=== PATIENT | male | born 1945 | race Caucasian/White ===

== ENCOUNTER 2016-10-15 10:29 | Emergency (ER) | payer OTHER, MEDICARE ==
[~2016-10-15] VITALS: Ht 167.6 cm; Wt 59.9 kg
[~2016-10-15 10:29] MED LIST: ANUSOL-HC25 M1 RC; CRESTOR20 MG PO; DIAZEPAM5 MG PO; DOCULAX PO; FLU VACCINE 0.0.5 ML IM; MULTIPLE VITAMI1 TAB PO; OXYCODONE-ACET1 EACH PO; PRINIVIL10 MG PO; SPIRIVA 18 MCG18 MCG INH; SYNTHROID125 MCG PO; TYLENOL #31 TAB PO
--- NOTE | 2016-10-15 11:06 | ED CARDIAC/CP/PALPITATIONS ---
History of Present Illness General Chief Complaint: Chest Pain Stated Complaint: CP, R SIDE HEADACHE, R ARM PAIN Source: patient Exam Limitations: no limitations Vital Signs & Intake/Output Vital Signs & Intake/Output Vital Signs Date Time Temp Pulse Resp B/P B/P Pulse O2 O2 Flow FiO2 Mean Ox Delivery Rate 10/15 1329 96.9 61 17 173/79 97 Room Air 10/15 1127 56 20 128/52 94 Room Air 10/15 1038 97.2 66 20 96 Room Air Allergies Coded Allergies: NO KNOWN ALLERGIES (02/04/12) Reconcile Medications Fluticasone/Vilanterol (Breo Ellipta 100-25 Mcg INH) 100 MCG-25 MCG/DOSE BLST.W.DEV 1 PUFF INH DAILY RESP (Reported) Levothyroxine Sodium (Synthroid) 125 MCG TABLET 1 TAB PO MoTuWeThFrSa THYROID (Reported) Levothyroxine Sodium 125 MCG TABLET 0.5 TAB PO Mon[place]roso THYROID (Reported) Lisinopril (Prinivil) 10 MG TABLET 1 TAB PO DAILY BLOOD PRESSURE (Reported) Multivitamin (Multiple Vitamin) 1 TAB TAB 0.5 TAB PO BID SUPPLEMENT (Reported ) Oxycodone HCl/Acetaminophen (Oxycodone-Acetaminophen 5-325) 5 MG-325 MG TABLET 1 TAB PO BIDP PRN SUPPLEMENT (Reported) Rosuvastatin Calcium (Crestor) 20 MG TABLET 1 TAB PO DAILY CHOLESTROL ( Reported) Triage Note: PT TO ED C/O R SIDED CHEST PAIN, R AXILLARY PAIN AND R SIDED HEAD PAIN X 2 DAYS. STATES COMES AND GOES, SHOOTING IN NATURE. CURRENTLY DENIES ANY PAIN. DENIES N/V/D. DENIES ANY INJURY. EKG DONE. PCP IS DR DA SILVA. Triage Nurses Notes Reviewed? 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 He states the episodes last for approximately a few seconds and resolve on their own. No history of similar episodes in the past. No trauma he denies recent heavy lifting or fall. No shortness of breath and cough hemoptysis. The pain is not worse with inspiration he denies he symptoms at this time. No chest pain. He denies headache vision changes neck or back pain. He is not taken anything for his symptoms no abdominal pain nausea or vomiting. No modifying factors she is not taken anything for symptoms (ALLA SCHROEDER) Past History Travel History Traveled to [place] past 21 day No Medical History Any Pertinent Medical History? see below for history Cardiovascular: hypertension, hyperlipidemia, myocardial infarction Respiratory: emphysema Surgical History Surgical History: non-contributory Psychosocial History Who do you live with Spouse What is your primary language Marshallese Tobacco Use: Quit >30 days ago ETOH Use: denies use Illicit Drug Use: denies illicit drug use Family History Hx Contributory? No (ALLA SCHROEDER) Review of Systems Review of Systems Constitutional: Reports: no symptoms, see HPI. All Other Systems: Reviewed and Negative Comments Review of systems: See HPI, All other systems negative. Constitutional, no chills no fever, no malaise HEENT: No visual changes no sore throat no congestion, no ear pain Cardiovascular: No chest pain , no palpitation , no orthopnea Skin: no rashes, no change in skin Respiratory: No dyspnea no cough no sputum no hemoptysis GI: No nausea no vomiting, no diarrhea, no bloating/constipation : No dysuria Muscle skeletal: No joint pain, no joint swelling, no back pain, no neck pain, Neurologic: No numbness no confusion, no headache Psych: No stress Heme/endocrine: No bruising no bleeding Immunology: No lymphadenopathy (ALLA SCHROEDER) Physical Exam Physical Exam General Appearance: well developed/nourished, no apparent distress, alert, awake , comfortable Cardiovascular: regular rate/rhythm Comments: Well-developed well-nourished person in no acute distress HEENT: Normal EENT exam; PERRL, EOMI, no nystagmus. HEAD is atraumatic. moist mucous membranes. Neck: Supple, no lymphadenopathy, normal range of motion without pain or tenderness Back: Nontender, no CVA tenderness. Full range of motion Cardiovascular: Regular rate and rhythms no murmurs rubs Respiratory: Chest nontender.There were no bony deformities, no asymmetry. No respiratory distress. Patient speaking in full complete sentences. Breath sounds clear to auscultation bilaterally: NO W/R/R Abdomen: Soft, nontender nondistended, no appreciable organomegaly. Normal bowel sounds. No rebound/guarding, Extremity: No edema, full range of motion of extremities, normal and equal pulses bilaterally, 5 out of 5 strength noted to bilateral upper and lower extremities Neuro: Alert oriented x3, motor sensory normal, There were no obvious focal neurologic abnormalities. Skin: No appreciable rash on exposed skin, skin is warm and dry. No abscess there is no erythema induration or fluctuance noted to the right axilla Psych: Mood and affect is normal, memory and judgment is normal. Core Measures ACS in differential dx? Yes Severe Sepsis Present: No Septic Shock Present: No (MNADY ROGER,ALLA) Progress Differential Diagnosis: AMI, aortic dissection, costochondritis, musculoskeletal pain, myocarditis, pancreatitis, pericarditis, pneumonia, pneumothorax, unstable angina, abscess, trigeminal neuralgia, shingles Plan of Care: Orders Procedure Date/time Status Telemetry/Nocturnist Physician 10/15 1126 Active TROPONIN LEVEL 10/15 1126 Complete PROTHROMBIN TIME 10/15 1126 Complete COMPREHENSIVE METABOLIC PANEL 10/15 1126 Complete CBC WITHOUT DIFFERENTIAL 10/15 1126 Complete EKG 10/15 1031 Active Laboratory Tests 10/15/16 1217: Anion Gap 13, Estimated GFR > 60, BUN/Creatinine Ratio 37.1 H, Glucose 88, Calcium 9.6, Total Bilirubin 0.6, AST 23, ALT 39, Alkaline Phosphatase 64, Troponin I < 0.01, Total Protein 7.2, Albumin 4.6, Globulin 2.6, Albumin/ Globulin Ratio 1.8, PT 11.5, INR 1.10, CBC w Diff NO MAN DIFF REQ, RBC 4.68 L, MCV 89.3, MCH 30.5, RDW 12.8, MPV 7.1 L, Gran % 64.7, Lymphocytes % 22.9, Monocytes % 8.9, Eosinophils % 3.1, Basophils % 0.4, Absolute Granulocytes 5.2, Absolute Lymphocytes 1.8, Absolute Monocytes 0.7 H, Absolute Eosinophils 0.2, Absolute Basophils 0, PUBS MCHC 34.1 Patient denies any symptoms at this time, case discussed with Dr. hooks agrees wt plan Discussed with the patient and family at length all of his results he's had no episodes of his symptoms while here in the ER I discussed with the patient at length all of their results. I had an extensive conversation regarding need for close follow up with their primary care physician this week as well as return precautions. I answered all of their questions, they feel comfortable with the plan and follow-up care. I discussed the medications that they will receive with the patient. I gave them signs and symptoms that could indicate an adverse reaction. I have advised them to limit their activities until they can see how they respond to the medication. (ALLA SCHROEDER) Initial ED EKG: nsr at 60, no acute st seg changes, normal axis Prior EKG: unchanged (12/2013) Rhythm Strip: normal sinus rhythm (ALLA SCHROEDER) Departure Departure Time of Disposition: 1313 Disposition: HOME OR SELF CARE Condition: Stable Clinical Impression Primary Impression: Pain in right axilla Referrals: AVINASH CAMARGO,CEZAR Kohli (PCP/Family) Additional Instructions: follow up with dr da silva th. take your pain medication you have at home if needed.return to the ER if your symptoms worsen or you have any other concerns Departure Forms: Customer Survey General Discharge Information (ALLA SCHROEDER) PA/ELECTRICIAN RESEARCH Co-Sign Statement Statement: ED Attending supervision documentation- x I saw and evaluated the patient. I have also reviewed all the pertinent lab results and diagnostic results. I agree with the findings and the plan of care as documented in the PA's/ELECTRICIAN RESEARCH's documentation. [] I have reviewed the ED Record and agree with the PA's/ELECTRICIAN RESEARCH's documentation. [] Additions or exceptions (if any) to the PAs/ELECTRICIAN RESEARCH's note and plan are summarized below: [] (WOODY CAMARGO,JUAN) Critical Care Note Critical Care Note Critical Care Time: non-applicable (ALLA SCHROEDER) ED Attending Observation Initial Observation Note: I have seen and personally examined JEANNETTE SANCHEZ on 10/15/16 at 1220. I agree with the current emergency department documentation. The disposition (admission or discharge) is uncertain at this time, he needs a period of observation for the following reason(s): The ED Nurse caring for this patient has been personally informed as to what the patient is being observed for. (ALLA SCHROEDER)
[2016-10-15] MEDS ORDERED: LEVOTHYROXINE125 MCG PO (11:57)
[2016-10-15] MEDS ORDERED: CRESTOR20 M2 PO (11:58)
[2016-10-15] MEDS ORDERED: BREO ELLIPTA 11 EACH INH (12:01)
[2016-10-15 12:33] LABS: ABSOLUTE BASOPHIL COUNT 0 /CUMM (0.0-0.2); ABSOLUTE EOSINOPHIL COUNT 0.2 /CUMM (0.0-0.7); ABSOLUTE GRANULOCYTE CT 5.2 /CUMM (1.4-6.5); ABSOLUTE LYMPH COUNT 1.8 /CUMM (1.2-3.4); ABSOLUTE MONOCYTE COUNT 0.7 /CUMM (0.10-0.60); BASOPHIL % 0.4 % (0.0-2.0); EOSINOPHIL % 3.1 % (0-5); GRANULOCYTE % 64.7 % (42.2-75.2); HEMATOCRIT 41.8 % (42-52); MEAN CORPUSCULAR HGB 30.5 PG (27.0-31.0); MEAN CORPUSCULAR HGB CONC 34.1 G/DL (33.0-37.0); MEAN CORPUSCULAR VOLUME 89.3 FL (80.0-94.0); MEAN PLATELET VOLUME 7.1 FL (7.4-10.4); PLATELET COUNT 264 /CUMM (130-400); PT 11.5 SEC (9.4-12.5); RBC DISTRIBUTION WIDTH 12.8 % (11.5-14.5); RED BLOOD CELL CT 4.68 /CUMM (4.70-6.10)
[2016-10-15 13:29] VITALS: BP 173/79
== END 2016-10-15 13:30 ==
LOC: ERH 10:29
PROVIDERS: Physician Assistant Medical
DX: M79.621 Pain in right upper arm (principal)
CPT/HCPCS: 93005; 93010